=== PATIENT | female | born 1990 | race Caucasian/White ===

== ENCOUNTER 2016-11-30 14:48 | Inpatient (IN) | payer SELFPAY ==
[~2016-11-30] VITALS: Ht 165.1 cm; Wt 63.6 kg
[2016-11-30] MEDS ORDERED: LORazepam 2 MG/ML VIAL IM ONE (15:15)
[2016-11-30] MEDS ORDERED: DiphenhydrAMINE HCL 50 MG/ML VIAL IM ONE (15:15)
[2016-11-30] MEDS ORDERED: HALOPERIDOL LACTATE 5 MG/ML VIAL IM ONE (15:15)
[2016-11-30] MEDS ORDERED: ZIPR20CA2 PO (15:16)
[2016-11-30] MEDS ORDERED: BUPR75 PO (15:16)
[2016-11-30] MEDS ORDERED: LAMO25 PO (15:16)
[2016-11-30] MEDS ORDERED: LORazepam 2 MG TABLET PO PRN (16:15)
[2016-11-30] MEDS ORDERED: ZOLPIDEM TARTRATE 10 MG TABLET PO PRN (16:15)
[2016-11-30] MEDS ORDERED: HALOPERIDOL 5 MG TABLET PO PRN (16:15)
[2016-11-30 16:51] LABS: BASOPHILS % (AUTO) 0.4 % (0.0-2.0); EOSINOPHILS % (AUTO) 2.8 % (1.0-6.0); HEMATOCRIT 43.7 % (36-46); LYMPHOCYTES # (AUTO) 1.7 K/uL (1.0-4.8); LYMPHOCYTES % (AUTO) 24.7 % (22.0-44.0); MEAN CORPUSCULAR HEMOGLOBIN 28.4 pg (26.0-34.0); MEAN CORPUSCULAR VOLUME 89 fL (80-100); MONOCYTES # (AUTO) 0.4 K/uL (0.1-1.0); MONOCYTES % (AUTO) 5.7 % (2.0-9.0); NEUTROPHILS # (AUTO) 4.6 K/uL (1.8-7.7); NEUTROPHILS % (AUTO) 66.4 % (40.0-70.0); PLATELET COUNT (AUTO) 254 K/uL (150-450); RED BLOOD CELL COUNT(AUTO) 4.92 MIL/uL (4.00-5.20)
[2016-11-30 16:57] LABS: ANION GAP 12 mmol/L (8-16); CARBON DIOXIDE 26 mmol/L (22-29); CHLORIDE 109 mmol/L (98-107); CREATININE 0.83 mg/dL (0.60-1.30); GLOMERULAR FILTR. RATE CALC > 60 mL/min (>60); SODIUM SERUM 147 mmol/L (136-145); UREA NITROGEN, BLOOD 7 mg/dL (7-18)
[2016-11-30 17:04] LABS: ALANINE AMINOTRANSFERASE 25 U/L (12-78); ALBUMIN 3.9 g/dL (3.4-5.0); ASPARTATE AMINOTRANSFERASE 19 U/L (15-37); BILIRUBIN,TOTAL 0.3 mg/dL (0.1-1.0); TOTAL PROTEIN, SERUM 7.3 g/dL (6.4-8.2)
[2016-11-30 19:06] VITALS: BP 113/75
[2016-12-01] MEDS: BACITRACIN 28.4 GM OINTMENT TP SCH ×2 (08:20→17:53)
[2016-12-01 16:37] VITALS: BP 116/74
[2016-12-01] MEDS ORDERED: IBUPROFEN 400 MG TABLET PO PRN (20:00)
[2016-12-01] MEDS ORDERED: ACETAMINOPHEN 325 MG TABLET PO PRN (20:00)
[2016-12-02 07:55] LABS: CHOL/HDL RATIO 2.8 (3.9-5.7)
[2016-12-02 08:16] VITALS: BP 105/65
[2016-12-02 08:50] LABS: HEMOGLOBIN A1C 4.7 % (4.5-6.2)
[2016-12-02] MEDS: ARIPiprazole 10 MG TABLET PO SCH (09:25)
[2016-12-02] MEDS: BACITRACIN 28.4 GM OINTMENT TP SCH ×2 (09:34→16:21)
[2016-12-02 10:25] LABS: THYROID STIMULATING HORMONE 0.36 uIU/mL (0.36-3.74)
[2016-12-02 13:11] LABS: APPEARANCE,URINE CLOUDY (CLEAR); GLUCOSE, URINE (UA) NEGATIVE (NEGATIVE); KETONES,URINE 40 mg/dL (NEGATIVE); LEUKOCYTE ESTERASE ,URINE SMALL (NEGATIVE); OCCULT BLOOD,URINE NEGATIVE (NEGATIVE); PROTEIN,URINE NEGATIVE (NEGATIVE)
[2016-12-02 13:19] LABS: ADD UA MICROSCOPIC YES
[2016-12-02 13:21] LABS: RBC,URINE 0-2 /HPF (0-2); SQUAMOUS EPITHELIAL CELL,UR Few /LPF (None Seen)
[2016-12-02 16:41] VITALS: BP 108/72
[2016-12-03 06:38] VITALS: BP 114/75
[2016-12-03 08:16] VITALS: BP 13/67
[2016-12-03] MEDS: ARIPiprazole 10 MG TABLET PO SCH ×2 (09:00→11:11)
[2016-12-03] MEDS: BACITRACIN 28.4 GM OINTMENT TP SCH ×2 (09:00→11:11)
[2016-12-03] MEDS ORDERED: ARIP10TA14 PO (12:02)
[2016-12-03] MEDS ORDERED: CIPR-278 PO (12:02)
[2016-12-03] MEDS ORDERED: CIPROFLOXACIN HCL 500 MG TABLET PO SCH (17:00)
== END 2016-12-03 14:27 | disposition home or self-care (01) | DRG 885 ==
LOC: EMS 14:50 → 3EI 17:37
PROVIDERS: ADMIT Psychiatry & Neurology Psychiatry; ATTEND Psychiatry & Neurology Psychiatry
DX: F20.0 Paranoid schizophrenia (principal); R45.851 Suicidal ideations; E87.0 Hyperosmolality and hypernatremia; F31.9 Bipolar disorder, unspecified; B95.2 Enterococcus as the cause of diseases classified elsewhere; F19.10 Other psychoactive substance abuse, uncomplicated; F12.90 Cannabis use, unspecified, uncomplicated; F15.90 Other stimulant use, unspecified, uncomplicated; F29 Unspecified psychosis not due to a substance or known physiological condition; Z59.0 Homelessness; Z91.5 Personal history of self-harm; Z71.51 Drug abuse counseling and surveillance of drug abuser; Z79.899 Other long term (current) drug therapy
CPT/HCPCS: 80307; 83036; 84443; 87086; 96372; 99285; G0480; J1200; J1630; J2060